=== PATIENT | male | born 1965 | race Caucasian/White ===

== ENCOUNTER → 2016-08-15 | Outpatient (CLI) | payer BC ==
--- NOTE | 2016-08-15 16:18 | CT ---
EXAMINATION TYPE: CT urogram wo/w con DATE OF EXAM: 08/15/2016 4:10 PM COMPARISON: NONE HISTORY: Pt states of frequent urination and UTI's. CT DLP: 3362.0 mGycm CONTRAST: without and with IV Contrast, patient injected with 100 mL of Omnipaque 300. CT Urography was performed with unenhanced followed by enhanced images of the kidneys, ureters and ur inary bladder. Delayed images were obtained. 3d reconstruction was perfromed at a separate work sta tion. FINDINGS: KIDNEYS/BLADDER: 12-14 nonobstructing right-sided renal calculi all smaller than 4 mm. Between 8 and 10 nonobstructing left-sided renal calculi the largest of which is seen within the lower pole and yoana sures 5.2 mm. 2.3 cm simple cyst upper pole right kidney. 0.1 cm simple cyst midpole left kidney without with one or 2 smaller cysts noted as well. No solid le sions are detected. Urinary bladder and ureters are unremarkable. LUNG BASES-: No visible nodule. No infiltrate. LIVER/GB: Cholecystectomy clips are in place. No space occupying hepatic lesion. Biliary tree is of n ormal caliber. PANCREAS: No inflammation. No distinct mass. SPLEEN: No splenic enlargement. No lesion seen. ADRENALS: No nodule. No thickening. BOWEL: Normal appendix. Normal bowel caliber. No inflammation. GENITAL ORGANS: Prostate enlargement noted. TURP defect suggested. LYMPH NODES: No greater than 1cm abdominal or pelvic lymph nodes are appreciated. AORTA: No significant abnormality. OSSEOUS STRUCTURES: No significant abnormality is seen. OTHER: No significant additional abnormality is seen. IMPRESSION: 1. Nonobstructing nephrolithiasis. 2. Renal cystic changes. No solid mass is detected.
== END | disposition home or self-care (01) ==
LOC: RADCTMAIN 15:02
PROVIDERS: ATTEND Family Medicine
DX: N20.0 Calculus of kidney (principal); N39.0 Urinary tract infection, site not specified
CPT/HCPCS: 74178; 74400; Q9967

== ENCOUNTER → 2016-08-26 | Outpatient (CLI) | payer BC ==
[2016-08-26 15:22] LABS: Calcium 9.6 mg/dL (8.4-10.2); Carbon Dioxide 28 mmol/L (22-30); Chloride 105 mmol/L (98-107); Non-African American GFR(MDRD) >60 (>60 ml/min/1.73 sqM); Phosphorous 4.1 mg/dL (2.5-4.5); Potassium 4.4 mmol/L (3.5-5.1); Sodium 144 mmol/L (137-145); Uric Acid 6.5 mg/dL (3.5-8.5)
== END ==
LOC: LABWHC1 14:46
PROVIDERS: ATTEND Physician Assistant
DX: N20.0 Calculus of kidney (principal)
CPT/HCPCS: 36415; 82310; 82374; 82435; 82565; 83735; 84100; 84132; 84295; 84550

== ENCOUNTER → 2023-10-17 | Outpatient (CLI) | payer OTHER ==
[2023-10-17 13:36] LABS: African American GFR (CKD) >90 (>60 ml/min/1.73 sqM); Blood Urea Nitrogen 20 mg/dL (9-20); Non-African American GFR(CKD) >90 (>60 ml/min/1.73 sqM)
--- NOTE | 2023-10-17 14:18 | CT ---
EXAMINATION TYPE: CT chest w con DATE OF EXAM: 10/17/2023 COMPARISON: None HISTORY: cough, SOB CT DLP: 507.5 mGycm Automated exposure control for dose reduction was used. CONTRAST: CT scan of the chest is performed with IV Contrast, patient injected with 100 mL of Isovue 300. FINDINGS: LUNGS: The lungs are grossly clear, there is no concerning parenchymal mass or nodule identified. T here is no pleural effusion or pneumothorax seen. The tracheobronchial tree is patent. MEDIASTINUM: There are no greater than 1 cm hilar or mediastinal lymph nodes. No pericardial effusi on is seen. Thoracic aorta is of normal caliber. The heart is not enlarged. UPPER ABDOMEN: No significant abnormality appreciated. OTHER: No additional significant abnormality is seen. IMPRESSION: 1. No significant abnormality seen to account for the patient's symptoms.
== END | disposition home or self-care (01) ==
LOC: RADCTMAIN 12:46
PROVIDERS: ATTEND Family Medicine
DX: R06.02 Shortness of breath (principal); R06.09 Other forms of dyspnea; R07.89 Other chest pain
CPT/HCPCS: 82565; 84520; 71260; 36415; Q9967

== ENCOUNTER → 2023-11-07 | Outpatient (CLI) | payer OTHER ==
--- NOTE | 2023-11-07 11:24 | CA ---
Exercise Stress Test Report Name: Akil Peres Exam Date: 11/07/2023 10:55 Exam Location: [facility] Stress Ht (in): 67 Wt (lb): 215 BSA: 2.09 Ordering Phys: Ramona Heredia DO Referring Phys: Priya Hunter Technologist: Hyacinth Etienne RDCS Age: 58 Gender: M : 1965 Procedure CPT: Indications: R06.02 SHORTNESS OF BREATH ICD-10 Codes: Patient History: SOUTH, PALP, HTN, CHOL, FAMILY HX, CATH Medications: ATORVASTATIN, COLIDNE, OTHER BP MEDS, BABY ASPIRIN, OMASTATIN Meds past 24 hrs: Pretest Chest Pain: STRESS TEST Dixon Protocol Exercise Duration (min:sec): 09:[address] Depressions (mm): Angina Score: Betancourt Score: Resting HR (bpm): 63 Peak HR (bpm): 147 Resting BP (mmHg): 120 / 74 Peak BP (mmHg): 189 / 75 MPHR: 162 Target HR: 138 % MPHR: 91 METS: 10.3 Total Dose: Peak Dose: Atropine: Double Product: 00239 BP Response: Stress Termination: Reached target heart rate Stress Symptoms: No chest pain or symptoms Stress Summary: ECG ANALYSIS Resting ECG: Normal sinus rhythm with right bundle branch block Stress ECG: Patient exercised on Dixon protocol for 9 minutes achieving 85% of predicted maximal heart rate without chest pain at peak exercise there was [address] segment depression noted in the inferolateral leads CONCLUSIONS Good exercise tolerance Abnormal stress test by EKG criteria Dr. Timur Craig MD (Electronically Signed) Final Date: 07 November 2023 11:23
== END | disposition home or self-care (01) ==
LOC: RADNMMAIN 10:28
PROVIDERS: ATTEND Family Medicine
DX: R94.39 Abnormal result of other cardiovascular function study (principal); R06.02 Shortness of breath; R07.9 Chest pain, unspecified; I10 Essential (primary) hypertension; R00.2 Palpitations
CPT/HCPCS: 93017